=== PATIENT | female | born 1995 | race Caucasian/White ===

== ENCOUNTER → 2018-09-29 | Outpatient (CLI) | payer OTHER ==
[~2018-09-29] MED LIST: Augmentin 875-1 EACH PO; Flonase 0.05% N16 GM; Norco 5-325 Ta1 EACH PO; Zofran Odt4 MG SL; [UNRECOGNIZED DRUG - OTHER]
== END | disposition home or self-care (01) ==
LOC: LAB SHORT 14:19 → LAB EV 14:19
DX: R06.02 Shortness of breath (principal)
CPT/HCPCS: 85379

== ENCOUNTER → 2019-04-30 | Outpatient (CLI) | payer OTHER ==
[2019-04-30 15:31] LABS: BASOPHILS ABSOLUTE AUTO 0.05 K/mm3 (0.00-0.23); BASOPHILS PERCENT AUTO 1 % (0-2); EOSINOPHILS ABSOLUTE AUTO 0.13 K/mm3 (0.00-0.68); EOSINOPHILS PERCENT AUTO 1 % (0-6); Hematocrit 31.7 % (33.0-51.0); IMMATURE GRAN ABSOLUTE AUTO 0.05 K/mm3 (0.00-0.10); IMMATURE GRAN PERCENT AUTO 1 % (0-1); LYMPHOCYTES ABSOLUTE AUTO 2.74 K/mm3 (0.84-5.20); LYMPHOCYTES PERCENT AUTO 26 % (21-46); MONOCYTES ABSOLUTE AUTO 0.82 K/mm3 (0.16-1.47); MONOCYTES PERCENT AUTO 8 % (4-13); Mean Corpuscular HGB 21.5 pg (26.0-34.0); Mean Corpuscular HGB Conc 28.4 g/dL (31.5-36.5); Mean Corpuscular Volume 76 fL (80-100); Mean Platelet Volume 9.3 fL (9.1-12.4); NEUTROPHILS ABSOLUTE AUTO 6.79 K/mm3 (1.96-9.15); NEUTROPHILS PERCENT AUTO 64 % (41-73); Platelet Count 439 K/mm3 (150-400); RDW Coefficient Variation 15.6 % (11.7-14.2); RDW Standard Deviation 42.7 fL (35.1-46.3); Red Blood Cell Count 4.19 M/mm3 (3.80-5.20); White Blood Cell Count 10.58 K/mm3 (4.00-11.30)
== END | disposition home or self-care (01) ==
LOC: LAB SHORT 13:50 → LAB 13:50
PROVIDERS: Hospitalist
DX: D50.9 Iron deficiency anemia, unspecified (principal)
CPT/HCPCS: 83540; 83550; 85025

== ENCOUNTER → 2020-04-12 | Outpatient (CLI) | payer OTHER ==
[2020-04-12 13:33] LABS: BASOPHILS ABSOLUTE AUTO 0.05 K/mm3 (0.00-0.23); BASOPHILS PERCENT AUTO 1 % (0-2); EOSINOPHILS ABSOLUTE AUTO 0.12 K/mm3 (0.00-0.68); EOSINOPHILS PERCENT AUTO 1 % (0-6); Hematocrit 42.5 % (33.0-51.0); Hemoglobin 13.3 g/dL (11.5-16.0); IMMATURE GRAN ABSOLUTE AUTO 0.03 K/mm3 (0.00-0.10); IMMATURE GRAN PERCENT AUTO 0 % (0-1); LYMPHOCYTES PERCENT AUTO 28 % (21-46); MONOCYTES ABSOLUTE AUTO 0.85 K/mm3 (0.16-1.47); MONOCYTES PERCENT AUTO 8 % (4-13); Mean Corpuscular HGB Conc 31.3 g/dL (31.5-36.5); Mean Corpuscular Volume 86 fL (80-100); Mean Platelet Volume 9.7 fL (9.1-12.4); NEUTROPHILS ABSOLUTE AUTO 6.47 K/mm3 (1.96-9.15); NEUTROPHILS PERCENT AUTO 62 % (41-73); Platelet Count 381 K/mm3 (150-400); RDW Coefficient Variation 12.8 % (11.7-14.2); RDW Standard Deviation 39.8 fL (35.1-46.3); Red Blood Cell Count 4.93 M/mm3 (3.80-5.20); White Blood Cell Count 10.42 K/mm3 (4.00-11.30)
[2020-04-12 14:28] LABS: Percent Saturation 8.5 % (15.0-50.0)
== END | disposition home or self-care (01) ==
LOC: LAB SHORT 11:48 → LAB 11:48
PROVIDERS: Hospitalist
DX: D50.9 Iron deficiency anemia, unspecified (principal)
CPT/HCPCS: 82728; 83540; 83550; 85025

== ENCOUNTER → 2020-06-02 | Outpatient (CLI) | payer OTHER ==
[2020-06-02 16:20] LABS: Anion Gap 5 mmol/L (6-16); Blood Urea Nitrogen 13 mg/dL (8-24); Bun/Creatinine Ratio 19.3 (12.0-20.0); CO2, Blood 27 mmol/L (21-32); Calcium, Blood 9.6 mg/dL (8.5-10.1); Chloride, Blood 108 mmol/L (98-108); Creatinine, Blood 0.67 mg/dL (0.40-1.00); Glomerular Filtration Rate >60 (60-); Glucose, Blood 75 mg/dL (70-99); Potassium, Blood 4.7 mmol/L (3.5-5.5); Sodium, Blood 140 mmol/L (136-145)
[2020-06-03 18:07] LABS: ANA DIRECT Negative (Negative)
== END | disposition home or self-care (01) ==
LOC: LAB SHORT 10:00 → LAB 10:00
PROVIDERS: Hospitalist
DX: M25.50 Pain in unspecified joint (principal); R21 Rash and other nonspecific skin eruption
CPT/HCPCS: 80048; 85651; 86038; 86430

== ENCOUNTER 2021-05-06 06:20 | Day surgery (SDC) | payer OTHER ==
[~2021-05-06] VITALS: Ht 162.6 cm; Wt 113.7 kg
[~2021-05-06 06:20] MED LIST changes: +Adipex-P37.5 MG PO; +VENL75ER PO
--- NOTE | 2021-05-06 09:20 | NUR ---
Patient up to Ambulate independently. Gait steady. [employer] warming gown applied. Discharge instructions reviewed with patient. Patient verbalizes understanding. Copy given to patient to take home. Patient States Post-Procedure ride home has been arranged. Discharged via wheelchair to private car for ride home.
== END 2021-05-06 09:22 | disposition home or self-care (01) ==
LOC: ORSCMMR 06:20 → ORD 07:30 → ORSCMMR 09:22
PROVIDERS: Surgery
PROC: 0JBL0ZZ Excision of Right Upper Leg Subcutaneous Tissue and Fascia, Open Approach (ICD-10-PCS; principal; 2021-05-06 07:30)
DX: R22.41 Localized swelling, mass and lump, right lower limb (principal); D36.7 Benign neoplasm of other specified sites; F84.5 Asperger's syndrome; E66.9 Obesity, unspecified; Z68.41 Body mass index [BMI] 40.0-44.9, adult; Z79.899 Other long term (current) drug therapy
CPT/HCPCS: 88305; 88341; 88342; J0171; J1100; J2250; J2405; J2704; J3010; J7120

== ENCOUNTER 2021-10-26 22:13 | Emergency (ER) | payer OTHER ==
[~2021-10-26] VITALS: Ht 162.6 cm; Wt 127.0 kg
== END 2021-10-26 23:32 | disposition home or self-care (01) ==
LOC: ER 22:13
DX: S81.011A Laceration without foreign body, right knee, initial encounter (principal); W22.8XXA Striking against or struck by other objects, initial encounter; Z91.09 Other allergy status, other than to drugs and biological substances; Z79.899 Other long term (current) drug therapy
CPT/HCPCS: 12001; 90471; 90714; 99282-25

== ENCOUNTER → 2022-07-04 | Outpatient (CLI) | payer OTHER ==
[2022-07-04 16:49] LABS: Alanine Aminotransfer (ALT/SGP 22 U/L (12-78); Albumin, Blood 3.7 g/dL (3.4-5.0); Albumin/Globulin Ratio 1.2 (0.8-1.8); Alk Phos 81 U/L (50-136); Anion Gap 3 mmol/L (6-16); Aspartate Aminotrans (AST/SGOT 10 U/L (12-37); Bilirubin, Total 0.4 mg/dL (0.1-1.0); Blood Urea Nitrogen 13 mg/dL (8-24); Bun/Creatinine Ratio 18.9 (12.0-20.0); CHOL/HDL RATIO 4.6; CO2, Blood 24 mmol/L (21-32); Calcium, Blood 8.7 mg/dL (8.5-10.1); Chloride, Blood 110 mmol/L (98-108); Cholesterol 165 mg/dL (50-200); Creatinine, Blood 0.69 mg/dL (0.40-1.00); Ferritin, Serum 4 ng/mL (8-252); Globulin, Blood 3.1 g/dL (2.2-4.0); Glomerular Filtration Rate 120 (60-); Glucose, Blood 137 mg/dL (70-99); HDL Cholesterol 36 mg/dL (>39); Iron Serum 32 ug/dL (50-170); LDL/HDL RATIO 2.8; Low Density Lipoprotein Chol 101 mg/dL (0-110); Percent Saturation 7.5 % (15.0-50.0); Sodium, Blood 137 mmol/L (136-145); Total Iron Binding Capacity 426 ug/dL (250-450); Total Protein, Blood 6.8 g/dL (6.4-8.2); Triglycerides 139 mg/dL (30-140); Very Low Density Lipoprot Chol 27 mg/dL (6-28)
== END | disposition home or self-care (01) ==
LOC: LAB 13:40 → LAB SHORT 13:40
PROVIDERS: Hospitalist
DX: Z00.00 Encounter for general adult medical examination without abnormal findings (principal); D50.9 Iron deficiency anemia, unspecified
CPT/HCPCS: 80053; 80061; 82728; 83540; 83550

== ENCOUNTER 2023-04-25 20:51 | Emergency (ER) | payer OTHER ==
[~2023-04-25] VITALS: Ht 162.6 cm; Wt 112.9 kg
[2023-04-25 21:13] VITALS: BP 160/107
[2023-04-25] MEDS ORDERED: ENSKYCE 28 TAB1 EACH PO (21:19)
== END 2023-04-25 23:30 | disposition home or self-care (01) ==
LOC: ER 20:51
DX: J34.89 Other specified disorders of nose and nasal sinuses (principal); J06.9 Acute upper respiratory infection, unspecified; Z79.899 Other long term (current) drug therapy; Z88.0 Allergy status to penicillin; Z88.1 Allergy status to other antibiotic agents; Z91.048 Other nonmedicinal substance allergy status
CPT/HCPCS: 99283

== ENCOUNTER → 2024-11-20 | Outpatient (CLI) | payer OTHER ==
[~2024-11-20] MED LIST changes: +ENSKYCE 28 TAB1 EACH PO
[2024-11-20 18:36] LABS: Ferritin, Serum 7.0 ng/mL (8-252); Total Iron Binding Capacity 523.0 ug/dL (250-450)
[2024-11-23 17:04] LABS: DEAMIDATED GLIADIN PEPTIDE,IGA 0.84 FLU (0.00-4.99); TISSUE TRANSGLUTAMINAS TTG,IGA <1.02 FLU (0.00-4.99)
== END ==
LOC: LAB SHORT 15:10 → LAB 15:10
PROVIDERS: Hospitalist
DX: D50.9 Iron deficiency anemia, unspecified (principal); R10.9 Unspecified abdominal pain; R73.9 Hyperglycemia, unspecified
CPT/HCPCS: 82728; 83036; 83540; 83550; 86258; 86364

== ENCOUNTER → 2024-11-25 | Outpatient (CLI) | payer OTHER | LOC: LAB SHORT 18:01 → LAB 18:01 | DX: D50.9 Iron deficiency anemia, unspecified (principal) | CPT/HCPCS: 85651 ==

== ENCOUNTER → 2024-12-31 | Outpatient (CLI) | payer OTHER | LOC: LAB SHORT 10:30 → LAB 10:30 | DX: L03.311 Cellulitis of abdominal wall (principal) | CPT/HCPCS: 87070; 87075; 87077; 87147; 87186; 87205 ==